=== PATIENT | male | born 1960 | race Caucasian/White ===

== ENCOUNTER 2017-12-20 15:04 | Emergency (ER) | payer SELFPAY ==
[~2017-12-20] VITALS: Ht 170.2 cm; Wt 89.4 kg
[2017-12-20] MEDS ORDERED: ASPI81CH PO (15:12)
[2017-12-20] MEDS ORDERED: ATOR40TA PO (15:12)
[2017-12-20] MEDS ORDERED: METO50 PO (15:13)
[2017-12-20] MEDS ORDERED: METF500C PO (15:13)
[2017-12-20] MEDS ORDERED: LISI5 (15:13)
[2017-12-20] MEDS ORDERED: CLOP75 PO (15:13)
[2017-12-20] MEDS ORDERED: NITR.6SL SL (15:14)
[2017-12-20 16:15] LABS: Calcium, Ionized (POC) 1.16 mmol/L (1.10-1.46); Chloride (POC) 102 mmol/L (98-108); Glucose (ISTAT POC) 204 mg/dL (70-99); Potassium (POC) 3.9 mmol/L (3.5-5.5); Sodium (POC) 139 mmol/L (135-148); Total CO2 (POC) 25 mmol/L (21-32)
== END 2017-12-20 17:07 | disposition home or self-care (01) ==
LOC: ER 15:04
PROVIDERS: Emergency Medicine
DX: E86.0 Dehydration (principal); I25.10 Atherosclerotic heart disease of native coronary artery without angina pectoris; F17.200 Nicotine dependence, unspecified, uncomplicated; Z79.899 Other long term (current) drug therapy; Z79.82 Long term (current) use of aspirin; Z79.01 Long term (current) use of anticoagulants; Z79.84 Long term (current) use of oral hypoglycemic drugs
CPT/HCPCS: 51798; 80047; 81000; 85014; 99283